=== PATIENT | male | born 1960 | race Caucasian/White ===

== ENCOUNTER 2023-09-18 17:18 | Inpatient (IN) | payer OTHER ==
[~2023-09-18] VITALS: Ht 177.8 cm; Wt 131.8 kg
[2023-09-18] MEDS ORDERED: IBLOOD GLUCOSE TEST STRIP 1 EA TEST VI ONE (17:45)
[2023-09-18] MEDS ORDERED: SODIUM CHLORIDE 0.9% 1,000 ML IV PRN (18:00)
[2023-09-18 18:02] LABS: ALBUMIN 3.5 g/dL (3.4-5.0); ALBUMIN/GLOBULIN RATIO 0.92 (1.1-2.4); ALCOHOL, MEDICAL <3 ng/dL (<3); ALKALINE PHOSPHATASE 145 U/L (46-116); ALT (SGPT) 49 U/L (14-59); ANION GAP 31.5 (7-21); AST (SGOT) 26 U/L (15-37); BILIRUBIN, TOTAL 1.8 ng/dL (0.2-1.0); BUN/CREATININE RATIO 20.56 (6.0-28.6); CALCIUM 9.3 mg/dL (8.5-10.1); CARBON DIOXIDE 13 mmol/L (21-32); CHLORIDE 87 mmol/L (98-107); CREATININE, SERUM 3.55 mg/dL (0.70-1.30); GLOMERULAR FILTRATION RATE,EST 19 mL/min (>60); POTASSIUM 4.5 mmol/L (3.5-5.1); PROTEIN, TOTAL 7.3 g/dL (6.4-8.2); UREA NITROGEN 73 mg/dL (7-18)
[2023-09-18 18:13] LABS: PH, VENOUS 7.245 (7.31-7.41)
[2023-09-18 18:16] LABS: BASOPHILS 0.1 % (0-2); HEMATOCRIT 41.9 % (35.0-50.0); HEMOGLOBIN 14.2 g/dL (12.0-18.0); LYMPHOCYTES 2.4 % (24-44); MCH 33.5 (27-36); MCV 98.6 fl (81-99); MONOCYTES 5.7 % (0-12); NEUTROPHILS 91.8 % (39-80); PLATELET COUNT 384 K/uL (140-440); RBC 4.24 M/ul (4.3-5.7); RDW 13.4 (10.5-15.0)
[2023-09-18 18:20] LABS: LACTIC ACID, BLOOD 2.4 mmol/L (0.4-2.0)
[2023-09-18] MEDS ORDERED: INSULIN REGULAR IN 0.9 % NACL 100 ML IV SCH (19:15)
[2023-09-18] MEDS ORDERED: LACTATED RINGER'S 1,000 ML IV ONE ×2 (20:45→21:00)
[2023-09-18 21:19] LABS: ANION GAP 29.8 (7-21); BUN/CREATININE RATIO 22.5 (6.0-28.6); CALCIUM 8.5 mg/dL (8.5-10.1); CREATININE, SERUM 3.11 mg/dL (0.70-1.30); POTASSIUM 3.8 mmol/L (3.5-5.1)
--- NOTE | 2023-09-18 22:14 | NUR ---
PT ARRIVES TO CCU ROOM 130, ADMITTED FOR DKA, INSULIN DRIP INFUSING AT 8.8 UNITS/HR, WILL TITRATE UP LAST BLOOD SUGAR CAME BACK >900.
--- NOTE | 2023-09-18 22:20 | NUR ---
CALL TO MD TO UPDATE HIM ON PT STATUS, LET HIM KNOW PT IS IN CCU, VERIFY ORDERS FOR BICARB PER ED RN AND IVF. UPDATED ON STATUS, NEW ORDER FOR LR BOLUS GIVEN WELL THE BICARB AND TO RECHECK LABS IN 2 HOURS.
[2023-09-18] MEDS ORDERED: DEXTROSE 5% 1,000 ML IV PRN (22:30)
[2023-09-18] MEDS ORDERED: LACTATED RINGER'S 1,000 ML IV SCH (22:30)
[2023-09-18] MEDS ORDERED: GLUCAGON,HUMAN RECOMBINANT 1 MG/ML VIAL SUB-Q PRN (22:30)
[2023-09-18] MEDS ORDERED: IBLOOD GLUCOSE TEST STRIP 1 EA TEST XX PRN (22:30)
[2023-09-18] MEDS ORDERED: SODIUM BICARBONATE 50 MEQ/50 ML SYR IV ONE (22:30)
[2023-09-18] MEDS ORDERED: DEXTROSE 50% 50 ML SYR IV PRN ×2 (22:30)
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
[2023-09-18 23:25] LABS: PH, VENOUS 7.293 (7.31-7.41)
[2023-09-18 23:30] VITALS: BP 96/82
[2023-09-18 23:39] LABS: ANION GAP 23.4 (7-21); BUN/CREATININE RATIO 23.8 (6.0-28.6); CALCIUM 8.8 mg/dL (8.5-10.1); CREATININE, SERUM 2.73 mg/dL (0.70-1.30); POTASSIUM 3.4 mmol/L (3.5-5.1)
[2023-09-19] VITALS (31 sets, daily range): BP systolic 83–147; BP diastolic 51–87
--- NOTE | 2023-09-19 | NUR ---
RECENT LABS BACK, SHOW BLOOD GLUCOSE 494 BUT BEDSIDE MACHINE AT 0000 READING HIGH, WILL CONFIRM GLUCOSE WITH LAB DRAW.
--- NOTE | 2023-09-19 00:02 | NUR ---
CALL TO DR HINDS TO UPDATE HIM ON MOST RECENT LAB RESULTS- ORDERS RECEIVED. IN TO DO BLOOD SUGAR CHECK, MACHINE READING HIGH, WILL HAVE LAB COME AND DRAW.
[2023-09-19] MEDS ORDERED: POTASSIUM CHLORIDE 10 MEQ/100 ML BAG IV SCH ×2 (00:15→06:30)
[2023-09-19] MEDS ORDERED: SODIUM BICARBONATE 100 MEQ in SODIUM CHLORIDE 0.45% 1,000 ML IV SCH (00:30)
[2023-09-19] MEDS ORDERED: SODIUM BICARBONATE 50 MEQ/50 ML VIAL ONE (00:53)
[2023-09-19 01:28] LABS: PH, VENOUS 7.309 (7.31-7.41)
[2023-09-19] MEDS ORDERED: LACTATED RINGER'S 1,000 ML IV ONE ×2 (01:45→03:45)
--- NOTE | 2023-09-19 01:45 | NUR ---
PT INC LOOSE DARK BROWN STOOL AND MODERATE AMT URINE, PT CLEANED UP, LINEN CHANGE DONE. PT SLIGHTLY UNCOOPERATIVE WITH CARES, HE IS AWAKE DURING THIS ACTIVITY, ANSWERS A FEW QUESTIONS- DENIES PAIN ALTHOUGH HE IS OCCASIONALLLY MOANING, AGAIN STATES THAT HE IS THE HOSP[place]. REPLIES "NO" WHEN ASKED IF HE HAS ANY FAMILY OR FRIENDS WE COULD CALL FOR HIM. AFTER CARE ACTIVITY HE GOES BACK TO SLEEP QUICKLY. HR REMAINS 100'S. CONT TO MONITOR BP'S.
[2023-09-19 01:52] LABS: ANION GAP 23.4 (7-21); BUN/CREATININE RATIO 24.53 (6.0-28.6); CALCIUM 8.6 mg/dL (8.5-10.1); CREATININE, SERUM 2.69 mg/dL (0.70-1.30); POTASSIUM 3.4 mmol/L (3.5-5.1)
--- NOTE | 2023-09-19 02:15 | NUR ---
DR HINDS CALLED AND UPDATED ON BP'S TRENDING DOWN, ORDER GIVEN FOR ANOTHER LR BOLUS, BOLUS STARTED.
--- NOTE | 2023-09-19 02:30 | NUR ---
DR HINDS IN TO SEE PT, NEW ORDERS GIVEN FOR ADD ON LABS.
--- NOTE | 2023-09-19 04:31 | NUR ---
BPS HAVE BEEN IMPROVING SINCE LR BOLUS, MOST RECENT BP 106/62. HR DOWN TO 80'S SINUS RHYTHM WITH OCC PVC'S. PT CONT TO MOSTLY SLEEP WITH OCCASIONAL MOANS AND MOVING HIMSELF IN BED SOME. BED ALARM REMAINS ON ALTHOUGH PT HAS NOT MADE ANY ATTEMPT TO GET HIMSELF OUT OF BED AT THIS POINT.
--- NOTE | 2023-09-19 05:02 | NUR ---
LAB IN TO DRAW
[2023-09-19] MEDS ORDERED: LORazepam 2 MG/ML VIAL IV/IM PRN (05:15)
[2023-09-19 05:22] LABS: HEMOGLOBIN 11.5 g/dL (12.0-18.0)
[2023-09-19 05:49] LABS: ANION GAP 13.1 (7-21); BUN/CREATININE RATIO 27.35 (6.0-28.6); CALCIUM 8.4 mg/dL (8.5-10.1); CREATININE, SERUM 2.12 mg/dL (0.70-1.30); MAGNESIUM 2.1 mg/dL (1.8-2.4); POTASSIUM 3.1 mmol/L (3.5-5.1)
[2023-09-19 05:55] LABS: HEMATOCRIT 31.5 % (35.0-50.0); LYMPHOCYTES 8.6 % (24-44); MCH 34.4 (27-36); MCV 94.6 fl (81-99); MONOCYTES 6.4 % (0-12); PLATELET COUNT 281 K/uL (140-440); RBC 3.33 M/ul (4.3-5.7)
[2023-09-19 05:58] LABS: MCHC 36.4 g/dl (30-36)
[2023-09-19] MEDS ORDERED: IBLOOD GLUCOSE TEST STRIP 1 EA TEST VI SCH ×4 (06:00→16:00)
--- NOTE | 2023-09-19 06:55 | NUR ---
DR HINDS ROUNDING ON PT, UPDATE GIVEN, NEW ORDERS RECEIVED. UPDTED ON CRITICAL LAB VALUE LACTIC ACID 2.2, WILL REPEAT LACTIC IN 3 HOURS, DRAW BLOOD CULTURES AND START ABX.
--- NOTE | 2023-09-19 07:00 | NUR ---
Report received from Carine SUAREZ. Patient resting in bed with eyes closed, even and unlabored respirations noted. insulin gtt confirmed at 5.1. Pt awakens to voice, states at "[facility]", able to verify birthday. Incontinent urine changed, dry attend in place. Pt assisted to use urinal and UA was obtained.
[2023-09-19] MEDS ORDERED: CEFEPIME HCL/D5W 1 GM/100 ML PIGGYBACK IV SCH (08:00)
--- NOTE | 2023-09-19 08:00 | NUR ---
CBG checked, 223, see flowsheet for insulin gtt. Scheduled medications administered and assessment complete. Pt displays altered mental status, intermittenly oriented to place and self, continues to talk about going home, "locking up guns", tangential stories about world travel and taking LSD. Lab in room to draw.
[2023-09-19 08:13] LABS: BILIRUBIN, URINE POSITIVE (negative); BLOOD/HGB, URINE SMALL (Negative); KETONE, URINE SMALL (Negative); LEUK ESTERASE, URINE NEGATIVE (negative); NITRITE, URINE NEGATIVE (negative); PH, URINE 5.5 (5-7)
[2023-09-19 08:19] LABS: EPITHELIAL CELLS, URINE SQUAMOUS 1+ /lpf (0-1+)
[2023-09-19 08:21] LABS: BACTERIA, URINE 2+ /hpf (negative); COLLECTION TYPE, URINE CLEAN CATCH; CRYSTALS, URINE NONE SEEN (0-1+); RED BLOOD CELLS, URINE 0-1 /hpf (0-5)
[2023-09-19 08:24] LABS: REFLEX CULTURE, URINE Yes (No)
[2023-09-19 08:28] LABS: AMPHETAMINES, URINE NEGATIVE (NEGATIVE); BARBITURATES, URINE NEGATIVE (NEGATIVE); BENZODIAZEPINE, URINE NEGATIVE (NEGATIVE); BUPRENORPHINE, URINE NEGATIVE (NEGATIVE); CANNABINOID, URINE NEGATIVE (NEGATIVE); COCAINE, URINE NEGATIVE (NEGATIVE); ECSTASY, URINE NEGATIVE (NEGATIVE); FENTANYL, URINE NEGATIVE (NEGATIVE); METHADONE, URINE NEGATIVE (NEGATIVE); OPIATES, URINE NEGATIVE (NEGATIVE); OXYCODONE, URINE NEGATIVE (NEGATIVE); PHENCYCLIDINE, URINE NEGATIVE (NEGATIVE)
[2023-09-19 08:47] LABS: BUN/CREATININE RATIO 29.28 (6.0-28.6); CALCIUM 8.1 mg/dL (8.5-10.1); CREATININE, SERUM 1.81 mg/dL (0.70-1.30)
[2023-09-19] MEDS ORDERED: PANTOPRAZOLE SODIUM 40 MG/10 ML VIAL IV SCH (09:00)
[2023-09-19] MEDS ORDERED: DAPTOmycin 500 MG/10 ML VIAL IV SCH (09:00)
[2023-09-19] MEDS ORDERED: ENOXAPARIN SODIUM 40 MG/0.4 ML SYR SUB-Q SCH (09:00)
--- NOTE | 2023-09-19 09:00 | NUR ---
CBG checked 203, insulin gtt at 4.2. IV ABX infusing, K rider complete, IVF infusing per order. Patient appears to be gradually more oriented, receptive to education about treatment plan, patient status etc. Continue to reinforce. Patient continues to discuss random topics not relevant to situation. Redirectable.
--- NOTE | 2023-09-19 09:45 | NUR ---
Discussed with Dr Link plan for pt. Insulin drip turned off at this time. RBVO to clarify- SS insulin orders and Accuchecks entered.
[2023-09-19] MEDS ORDERED: INSULIN LISPRO 100 UNIT/ML ML SUB-Q SCH ×3 (10:00→16:00)
--- NOTE | 2023-09-19 10:00 | NUR ---
CBG 199, 3 units SS insulin administered.
[2023-09-19] MEDS ORDERED: THIAMINE HCL 200 MG/2 ML VIAL IV SCH (11:15)
[2023-09-19] MEDS ORDERED: FOLIC ACID 1 MG TAB PO SCH (11:15)
[2023-09-19] MEDS ORDERED: POTASSIUM CHLORIDE 10 MEQ TABCR PO ONE ×2 (11:15→13:30)
--- NOTE | 2023-09-19 11:24 | NUR ---
VERBAL ORDERS FROM DR HINDS RECEIVED TO DC INSULIN DRIP, START Q4 X4 CBG AND SS, THIAMINE, FOLIC ACID AND PO K, LAB DRAWS. RBVO.
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
--- NOTE | 2023-09-19 11:36 | NUR ---
Patient calls again regarding "locking up his house and guns", Sup. Mona in unit and comes to talk to pt.
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
[2023-09-19] MEDS ORDERED: PHARMACY RENAL DOSE ADJUSTMENT 1 DOSE MISC PO SCH (12:00)
--- NOTE | 2023-09-19 12:17 | NUR ---
CBG checked, 235, 5 units SS insulin provided. IV thiamine provided. Pt able to take [address] Link verifies pt able to advance to 60g C diet. Lunch delivered. Pt remains stable condition, RA, increasingly more alert and oriented albeit some moments of disorientation, redirectable.
[2023-09-19 12:43] LABS: ANION GAP 12.9 (7-21); BUN/CREATININE RATIO 28.22 (6.0-28.6); CALCIUM 8.1 mg/dL (8.5-10.1); CREATININE, SERUM 1.63 mg/dL (0.70-1.30); POTASSIUM 2.9 mmol/L (3.5-5.1)
--- NOTE | 2023-09-19 12:51 | EKG ---
[facility] [address] [place], [place] [address] Signed Sinus rhythm Inferior infarct , age undetermined Abnormal ECG No previous ECGs available Confirmed by FELIZ HINDS MD ([id number]) on 09/19/2023 12:52:13 PM Electronically Signed By: FELIZ HINDS 09/19/23 1251 PATIENT NAME: ALIZA AUSTIN Electrocardiogram DATE OF : 64 PHYSICIAN: FELIZ HINDS REPORT #: [id number] REPORT IS CONFIDENTIAL AND NOT TO BE RELEASED WITHOUT AUTHORIZATION
--- NOTE | 2023-09-19 13:10 | NUR ---
REPORT RECEIVED FROM DANIELA RODRIGUEZ. PT DONE WITH LUNCH, ATE APPROX 75% AND NOW USING THE URINAL. PT STATES WE ARE IN [place] AND HIS BABY BROTHER IS TO A DUDE. PT IS AWARE HE IS IN A HOSPITAL ATT THOUGH.
[2023-09-19] MEDS ORDERED: POTASSIUM CHLORIDE 40 MEQ,LIDOCAINE HCL 1% 40 MG in DEXTROSE 5% 500 ML IV ONE (13:30)
--- NOTE | 2023-09-19 13:55 | NUR ---
PT CALLED TO HAVE TEMP IN ROOM TURNED DOWN HE WAS HOT. K RIDER INFUSING.
--- NOTE | 2023-09-19 14:43 | NUR ---
PT CALLED TO ASK IF HE STILL NEEDED TO BE HOOKED UP TO ALL THE THINGS HE "WANTS TO RUN OFF". EXPLAINED THAT HE WILL BE HERE IN THE HOSPITAL A LITTLE LONGER AND THAT HE IS GETTING POTASSIUM THROUGH HIS IV.
--- NOTE | 2023-09-19 15:05 | NUR ---
STARTED AB IN LEFT UPPER ARM IV. FLUSHED WELL. PT STATES HE LIVES IN [facility], SO NOT ORIENTED YET. BUT DID KNOW WHO IS THE PRESIDENT.
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
[2023-09-19 18:32] LABS: ANION GAP 15.8 (7-21); BUN/CREATININE RATIO 24.84 (6.0-28.6); CALCIUM 7.8 mg/dL (8.5-10.1); CREATININE, SERUM 1.57 mg/dL (0.70-1.30); POTASSIUM 3.8 mmol/L (3.5-5.1)
[2023-09-19] MEDS ORDERED: INSULIN GLARGINE-YFGN 100 UNIT/ML ML SUB-Q SCH (21:00)
--- NOTE | 2023-09-19 23:28 | NUR ---
Pt has called multiple times, stating "I am not watching this crap", but when offered to change channel or turn off TV he states "I want to keep it, I haven't watched [employer] in a long time". It appears he has more psychsocial needs than medical need. At one point he demanded this RN dump his urinal as I was hanging a medication. I asked him to place the urinal on the table and I would dump it as soon as I was finished, which severely aggitated patient who then said "I'll come through you if you don't take this". Brayan ADRIÁN was near and heard, he came in the room and emptied the urinal and spoke with pt briefly about starting over. When leaving the room, I asked if pt needed anything further and he stated "no thank you" kindly. Pt POC glucose was 421, notified, continue with Long and short acting insulin. See eMAR
[2023-09-20] VITALS (11 sets, daily range): BP systolic 114–155; BP diastolic 57–89
[2023-09-20 05:46] LABS: ALBUMIN 2.5 g/dL (3.4-5.0); ALBUMIN/GLOBULIN RATIO 0.89 (1.1-2.4); ANION GAP 13.2 (7-21); BUN/CREATININE RATIO 21.18 (6.0-28.6); CALCIUM 7.8 mg/dL (8.5-10.1); CREATININE, SERUM 1.18 mg/dL (0.70-1.30); MAGNESIUM 1.8 mg/dL (1.8-2.4); POTASSIUM 3.2 mmol/L (3.5-5.1); PROTEIN, TOTAL 5.3 g/dL (6.4-8.2)
[2023-09-20 06:19] LABS: BASOPHILS 1.1 % (0-2); EOSINOPHILS 0.5 % (0-6); HEMATOCRIT 29.4 % (35.0-50.0); HEMOGLOBIN 10.7 g/dL (12.0-18.0); LYMPHOCYTES 16.2 % (24-44); MCV 96.3 fl (81-99); MONOCYTES 8.6 % (0-12); NEUTROPHILS 73.6 % (39-80); PLATELET COUNT 168 K/uL (140-440); RBC 3.05 M/ul (4.3-5.7); RDW 12.7 (10.5-15.0)
[2023-09-20 06:21] LABS: MCHC 36.4 g/dl (30-36)
--- NOTE | 2023-09-20 07:49 | NUR ---
REPORT FROM STREETS AND BUILDINGS DECORATOR MCAYLA, PT RESTING ON LEFT SIDE, RESP RATE REG, EYES CLOSED, CALL LIGHT IN REACH.
[2023-09-20] MEDS ORDERED: POTASSIUM CHLORIDE 10 MEQ TABCR PO ONE (08:00)
--- NOTE | 2023-09-20 09:11 | NUR ---
in room with dr, and pt advocate. pt alert and oriented. answers questions appropriate.
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
--- NOTE | 2023-09-20 09:37 | NUR ---
pt has called for rn 3-4 times consistantly after each visit, asking same questions, fixated on dental insurance and fretting about his house and who will pay bills, educated pt that dc retail planner, informatics educator and this rn are working on plan of care and the pt advocated was just in with and this rn and is working on helping, pt states he understands, pt/ot in to work with pt.
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
--- NOTE | 2023-09-20 10:02 | NUR ---
DISCUSSED PT PLAN OF CARE AND EXPERINCES WITH IMER RAMOS DENTAL CERAMIST ASSISTANT.
--- NOTE | 2023-09-20 10:12 | NUR ---
PT CALLED RN IN TO ASK NURSE TO CALL [facility] - RN DECLINED AND ADVISED HIM TO CALL HIS FAMILY - HE SAID NO HE HAS A BROTHER AND A SISTER AND THEY ARE BOTH CRAZY! INSISTS THAT WE CALL THE TRUST AT [facility] - RN EDUCATED THAT i CAN NOT CALL A BANK BUT i CAN CALL A NEXT OF KIN, PT BROTHER SAMEER RILEY AT DESK WITH FORMULA CLERK SARAH.
--- NOTE | 2023-09-20 10:39 | NUR ---
call to dr almanza to let him know pt is becoming anxious and hyperfocused on rn needing to call his trust - upset that I stated I will not. pt starts to discuss his childhood, and siblings and his distrust for his brother and insists again that I call the bank and figure out this health care situation.
--- NOTE | 2023-09-20 11:27 | NUR ---
yana here to talk to pt about diabetic education and food. pt cooks his own meals, and shops for self. pt up in chair - starts to talk about dogs, and carlene hong redirects convo to diabetic food teaching. diabetic tracking flow sheet provided by this rn to pt. 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 reports he needs to find a or nurse to take care of him.
--- NOTE | 2023-09-20 11:50 | NUR ---
this rn did pt teaching for pre lunch blood sugar check, 309 glucose - and 7 units of insulin. rn educated pt to write down the number at lunch time on the flow sheet provided, and educated that the dr order is for 7 units of insulin when the number is that high, yana present and helped re enforce the teaching. pt very scattered in thoughts and tries to add 309 and 7 together - explained that 309 is the blood sugar level and 7 is the units of medication. they are diffrent and no adding is needed. rn demonstrated the shot in abd. with yana present, etoh wipe, pinch abd fat, push needle, push medication dose and pull needle strait out - done. will continue to re enforce - up in with call light for meal.
[2023-09-20] MEDS ORDERED: INSULIN LISPRO 100 UNIT/ML ML SUB-Q SCH (12:00)
[2023-09-20] MEDS ORDERED: IBLOOD GLUCOSE TEST STRIP 1 EA TEST VI SCH (12:00)
--- NOTE | 2023-09-20 13:03 | NUR ---
Pt reclined in chair, eyes closed, resp rate reg. call light in reach.
--- NOTE | 2023-09-20 13:21 | NUR ---
REPORT TO GISSELLE SUAREZ ON MED SURG. PT CONTINUES TO SLEEP IN CHAIR - PLAN TO TRSF. MED SURG ROOM 112
--- NOTE | 2023-09-20 13:26 | NUR ---
CALL TO DR UP, CONFIRM TRSF TO MED SURG. DC ABX.
--- NOTE | 2023-09-20 13:31 | NUR ---
VISITED DURING SPIRITUAL CARE ROUNDS. PT APPEARED TO BE ASLEEP. DID NOT DISTURB. PROVIDED PRAYER.
--- NOTE | 2023-09-20 14:05 | NUR ---
pt trsf to 112 with conrado concepcion. all belongings with pt.
--- NOTE | 2023-09-20 14:07 | NUR ---
ATTEMPTED TO VISIT DURING SPIRITUAL CARE ROUNDS. PT RECEIVING NURSING CARE. DID NOT DISTURB. PROVIDED PRAYER.
--- NOTE | 2023-09-20 14:25 | NUR ---
bROUGHT PT OVER FROM CCU IN CHAIR. REPORT FROM DANIELA NÚÑEZ. PT ALERT AND COOPERATIVE. USED THE URINAL, GIVEN CALL LIGHT AND TV REMOTE. REFILLED WATER CUP. PT DENIES FURTHER NEEDS.
--- NOTE | 2023-09-20 15:18 | NUR ---
PT CONTINUES IN CHAIR. DRAWING ON PIECE OF PAPER," HIS DRUNK APPLE". TALKING ABOUT HIS TIME HITCHHIKING THROUGH [place] AND [place]. VS STABLE.
--- NOTE | 2023-09-20 16:30 | NUR ---
Pt discussed with Dr. Swenson and I am unable to find information on this pt. There is a phone number listed for his brother Acosta Chew [phone], but pt denied permission to call the brother.
--- NOTE | 2023-09-20 16:56 | NUR ---
PATIENT IS FINISHED WITH SHOWER. PATIENT DRIED SELF OFF, HELPED PATIENT WITH SOCKS. PATIENT AMBULATED FROM BATHROOM TO CHAIR WITH SBA AND STEADY ON HIS BEED. CALL LIGHT WITHIN REACH.
--- NOTE | 2023-09-20 17:38 | NUR ---
ASSISTED PT TO ADMINISTER HIS OWN INSULIN IN HIS ABDOMEN. PT DID WELL AND WO ERROR. ASKED PT ABOUT HIS PLANS AFTER DISCHARGE AND HE STATED HE WOULD LIKE TO GET AHOLD OF [place] HIS SISTER OR SAMEER HIS BROTHER. STATES THAT HE IS FINE IF WE CALL ONE OF THEM. DOES NOT KNOW THEIR NUMBERS OR HOW TO GET THEM. STATES HE HAS AN AUNT IN [place] NAMED JIHAN MARISCAL. PT ATE MOST OF DINNER.
--- NOTE | 2023-09-20 19:20 | NUR ---
BEDSIDE REPORT RECEIVED FROM GISSELLE RN, PT AWAKE AND ALERT, PLEASANT, DENIES NEEDS AT THIS TIME.
--- NOTE | 2023-09-20 21:05 | NUR ---
PT LAYING IN BED WITH EYES CLOSED, AWAKEN, VS COMPLETED, PT OPENS EYES, ASSESSMENT COMPLETED, PT STATES HE HAS TO VOID, PLANNING TO USE URINAL, NURSE STEPPED OUT, WHEN RN RETURNED URINAL EMPTY, WHEN QUESTIONED PT STATES HE VOIDED IN URINAL AND THEN GOT UP TO EMPTY IT, DISCUSSED NEED TO MEASURE URINE OUTPUT, PT APPEARS AGITATED STATING "SO WE ARE PLAYING THIS GAME", DECLINES TELLING NURSE HOW FULL URINAL WAS.
--- NOTE | 2023-09-20 21:26 | NUR ---
PT ASSISTED WITH PERFORMING ACCUCHECK, BLOOD SUGAR 295, PT COMPLETES FINGER STICK, COLLECTION OF BLOOD DROP BY RN, PT ADMINISTERED LONG ACTING AND SS INSULIN WITH FAIR TECHNIQUE IN HIS ABDOMEN. PT DENIES NEEDS AT THIS TIME.
--- NOTE | 2023-09-20 22:50 | NUR ---
HANDKERCHIEF PRESSER TO ROOM TO ASSIST PT WITH PUTTING UP SIDE RAIL, PT WITHOUT OTHER REQUESTS AT THIS TIME.
[2023-09-21] VITALS (8 sets, daily range): BP systolic 125–153; BP diastolic 72–93
--- NOTE | 2023-09-21 00:30 | NUR ---
PT RESTING, CALLING OUT AT TIMES, HR 88/MIN, CPOX AT 94%, CONTINUES ON 1L/NC.
--- NOTE | 2023-09-21 01:55 | NUR ---
PT APPEARS TO SLEEP, RESP EVEN AND REG, LAYING ON LEFT SIDE, WITHOUT DISTRESS.
--- NOTE | 2023-09-21 04:05 | NUR ---
PT APPEARS TO SLEEP, RESP EVEN AND REG, URINAL EMPTIED FOR YELLOW URINE.
--- NOTE | 2023-09-21 04:55 | NUR ---
PT AWAKE, RECENTLY UP TO BR TO VOID, USING FWW BUT NOT CALLING FOR STAND BY ASSIST, BACK TO BED, VS DONE AND STABLE, PT DENIES COMPLAINTS, PT ALERT, PLEASANT, DENIES NEEDS AT THIS TIME.
[2023-09-21 05:37] LABS: ANION GAP 9.5 (7-21); BUN/CREATININE RATIO 13.46 (6.0-28.6); CALCIUM 7.9 mg/dL (8.5-10.1); CREATININE, SERUM 1.04 mg/dL (0.70-1.30); POTASSIUM 3.5 mmol/L (3.5-5.1)
[2023-09-21 05:40] LABS: BASOPHILS 0.8 % (0-2); EOSINOPHILS 2.3 % (0-6); HEMATOCRIT 29.1 % (35.0-50.0); HEMOGLOBIN 10.5 g/dL (12.0-18.0); LYMPHOCYTES 28.9 % (24-44); MCH 34.7 (27-36); MCV 96.5 fl (81-99); PLATELET COUNT 157 K/uL (140-440); RBC 3.01 M/ul (4.3-5.7); RDW 12.8 (10.5-15.0)
--- NOTE | 2023-09-21 06:00 | NUR ---
PT RESTING WITHOUT COMPLAINTS AT THIS TIME.
--- NOTE | 2023-09-21 07:34 | NUR ---
Patient resting in bed, eyes closed, respirations even and non labored. Patient has no notable distress. Personal supplies and call light within reach.
[2023-09-21] MEDS ORDERED: THIAMINE HCL 100 MG TAB PO SCH (08:00)
--- NOTE | 2023-09-21 08:15 | NUR ---
Patient went through the proper steps on taking blood sugar. Patient understoof the proper steps. Board has been updated and call light has been placed within reach
--- NOTE | 2023-09-21 08:23 | NUR ---
MED REC COMPLETE
[2023-09-21] MEDS ORDERED: PANTOPRAZOLE SODIUM 40 MG TABEC PO SCH (09:00)
--- NOTE | 2023-09-21 09:00 | NUR ---
Patient awake, alert to self and place. Patient reports he "does not people well". Patient reports he has a difficult time talking to people. Patient does not have any distress at this time. Personal supplies and call light within reach.
--- NOTE | 2023-09-21 10:27 | NUR ---
VISITED DURING SPIRITUAL CARE ROUNDS. PT EXHIBITED LIMITED HAN OR RELATIONAL RESOURCES, LIMITED INTEREST IN DISCUSSION. I LISTENED EMPATHETICALLY PT TALKED OF FAMILY, CONCERNS REGARDING DISCHARGE PLAN, PERSONAL HAN JOURNEY. PROVIDED SILENT PRAYER.
--- NOTE | 2023-09-21 10:30 | NUR ---
PT DECLINES FURTHER PASTORAL CARE VISITS.
--- NOTE | 2023-09-21 11:18 | NUR ---
WENT TO THE PATIENT'S ROOM TO DISCUSS THE DISCHARGE PLAN AND THE PATIENT IS SLEEPING. MOLD CAPPER WILL RETURN LATER TO TALK TO THE PATIENT.
--- NOTE | 2023-09-21 12:35 | NUR ---
Patient sitting up eating, alert to self and place. Patient able to self administer his lunch time scheduled insulin. Patient has no current needs, personal supplies and call light within reach.
--- NOTE | 2023-09-21 13:54 | NUR ---
UR CLINICAL REVIEW COMPLETED 09/20/23: [facility] [place] SELF PAY OBS 09/18/23 @ 4205, CHANGE OF STATUS TO INPATIENT 09/20/23 @ 1025 ORDERS MATCH NO PA REQUIRED. WILL ATTEMPT TO QUALIFY PATIENT FOR [place] [employer]ICA[employer] DISCHARGE PENDING FURTHER EVALUATION 09/23/23
--- NOTE | 2023-09-21 15:39 | NUR ---
MECHANICAL REPAIR WORKER WAS ABLE TO GET THE PATIENT SIGNED UP FOR [facility] AND PATIENT'S APPT.WILL BE September AT 1PM WITH MISSY JJ. PATIENT IS TRYING TO FIND HIS PHONE WHICH IS LOST AT THIS TIME. PATIENT DOES NOT WANT TO RETURN HOME. MECHANICAL REPAIR WORKER ASK PATIENT TO CONSIDER SNF REHAB. AND DM TEACHING.
--- NOTE | 2023-09-21 15:47 | NUR ---
FAXED PATIENT MEDICAL RECORDS OVER TO [facility] FOR REVIEW. PATIENT WAS REMINDED TO ARRIVE 20 MINTUES.
--- NOTE | 2023-09-21 17:42 | NUR ---
Patient sitting up in bed eating dinner, no acute distress. Patient reports he is doing well at this time. Call light within reach of pt.
--- NOTE | 2023-09-21 19:42 | NUR ---
REPORT RECEIVED FROM DAY RN. PATIENT WAS STANDING IN HIS BATHROOM SHAVING. RN ASKED PATIENT IF HE NEEDED ASSISTANCE. HE STATED, " NO I LIKE TO BE SHAVED." RN MONITORING WITH DISTANCE WHILE PATIENT WAS SHAVING. PATIENT BACK TO BED. UP AND WALKING WITH 1 PA STAND BY ASSIST, TOLLERATED WELL. NO FURTHER NEEDS AT THIS TIME. CALL LIGHT WITHIN REACH.
--- NOTE | 2023-09-21 21:13 | NUR ---
INSIDE CONTRACTOR SALES ENTERED ROOM AND OBTAINED VITALS AND INPUT. NO OUT PUT NOTED. INSIDE CONTRACTOR SALES REFILLED PT ICE WATER REQUESTED. PT STATES NO FURTHER NEEDS AT THIS TIME. CALL LIGHT PLACED WITHIN REACH.
--- NOTE | 2023-09-21 21:32 | NUR ---
PATIENT RESTING IN BED. HS MEDICATION ADMINISTERED. NO S/SX OF HYPOGLYCEMIA OR HYPERGLYCEMIA. PATIENT ABLE TO DEMONSTRATE SELF ADMINSTRATION OF HS INSULIN. RN PRESENT DURING TEACHING AND ADMINSTRATION. SECOND RN CHECK TO VERIFY DOSE. PATIENT WITH NO FURTHER NEEDS AT THIS TIME. CALL LIGHT WITHIN REACH.
--- NOTE | 2023-09-21 23:30 | NUR ---
PATIENT IS RESTING IN BED. WATCHING TV. DENIES ANY NEEDS AT THIS TIME. CALL LIGHT WITHIN REACH.
[2023-09-22] VITALS (10 sets, daily range): BP systolic 133–161; BP diastolic 72–97
--- NOTE | 2023-09-22 00:35 | NUR ---
PATIENT RESTING IN BED LAYING ON HIS LEFT SIDE. RESPRIATIONS EVEN AND UNLABORED. CALL LIGHT WITHIN REACH.
--- NOTE | 2023-09-22 05:41 | NUR ---
PATIENT RESTING IN BED. URINAL EMPTIED. USED MOUTHWASH RINSE. VSS. NO C/O PAIN OR DISCOMFORT. DENIES HEADACHE, DIZZYNESS, AND SHAKINESS. NO FURTHER NEEDS AT THIS TIME. CALL LIGHT WITHIN REACH.
[2023-09-22 08:28] LABS: ANION GAP 13.4 (7-21); BUN/CREATININE RATIO 11.95 (6.0-28.6); CALCIUM 7.6 mg/dL (8.5-10.1); CREATININE, SERUM 0.92 mg/dL (0.70-1.30); POTASSIUM 3.4 mmol/L (3.5-5.1)
[2023-09-22 08:52] LABS: BASOPHILS 0.5 % (0-2); EOSINOPHILS 2.3 % (0-6); HEMATOCRIT 30.8 % (35.0-50.0); LYMPHOCYTES 25.2 % (24-44); MCH 33.8 (27-36); MCHC 35.8 g/dl (30-36); MCV 94.4 fl (81-99); MONOCYTES 9.9 % (0-12); NEUTROPHILS 62.1 % (39-80); PLATELET COUNT 148 K/uL (140-440); RBC 3.26 M/ul (4.3-5.7); RDW 12.5 (10.5-15.0)
--- NOTE | 2023-09-22 09:40 | NUR ---
Spoke with pt and he is in agreement for placement to a SNF. Pt [facility] and go to [place]. Chart faxed to [facility] requesting placement for PT/OT and diabetic education. Pt will need 1 more night IP stay for placement.
--- NOTE | 2023-09-22 09:46 | NUR ---
PT DECLINED SPIRITUAL CARE SERVICES. PROVIDED PRAYER.
--- NOTE | 2023-09-22 10:13 | NUR ---
PT EDUCATED ON IMPORTANCE OF USING HIS URINAL
[2023-09-22] MEDS ORDERED: POTASSIUM CHLORIDE 10 MEQ TABCR PO ONE (11:00)
--- NOTE | 2023-09-22 13:00 | NUR ---
Patient sitting up in chair watching tv, no distress. Patient denies needs at this time.
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
--- NOTE | 2023-09-22 19:36 | NUR ---
REPORT RECEIVED FROM DAY RN. PATIENT IS RESTING IN BED. DENIES ANY NEEDS AT THIS TIME. REQUESTED THE PHONE TO "CALL AND PAY THE POWER BILL." RN GRABBED PHONE OFF THE SIDE TABLE FOR PATIENT. CALL LIGHT WITHIN REACH.
--- NOTE | 2023-09-22 21:39 | NUR ---
PATIENT RESTING IN BED. BS CHECKED. PATIENT EDUCATED ON HOW TO TAKE BLOOD SUGAR. PATIENT DEMONSTRATED INJECTION OF HS INSULIN. NO DIFFICULTIES NOTED.VSS, LUNGS CTA. URINAL EMPTIED. BOWEL TONES ACTIVE X 4 QUADRANTS. PATIENT DISCUSSING IS NEW DIAGNOSIS OF DIABETES WITH THIS NURSE. EXPRESSED FEELING UNSURE OF BEING ABLE TO " DEAL" WITH DIABETES. PATIENT EXTRESSED TO THIS RN THAT HIS BROTHER, " COULD CARE LESS I HAVE DIABETES." RN ENCOURAGED PATIENT TO KEEP LEARNING ABOUT THE DISEASE AND REASURED PATIENT THAT HE WILL BE ABLE TO MANAGE DISEASE ONCE HE FUILLY UNDERSTANDS HOW TO CARE FOR IT. CALL LIGHT WITHIN REACH. NO FURTHER NEEDS AT THIS TIME.
[2023-09-23] VITALS (7 sets, daily range): BP systolic 133–160; BP diastolic 66–94
--- NOTE | 2023-09-23 00:04 | NUR ---
PATIENT IS RESTING IN BED LAYING ON HIS LEFT SIDE WITH EYES CLOSED. RESPIRATIONS EVEN AND UNLABORED. CALL LIGHT WITHIN REACH.
--- NOTE | 2023-09-23 02:00 | NUR ---
PATIENT RESTING IN BED WITH EYES CLOSED. RESPIRATIONS EVEN AND UNLABORED. CALL LIGHT WITHIN REACH.
--- NOTE | 2023-09-23 05:37 | NUR ---
PATIENT RESTING IN BED AWAKE. LAB IN ROOM DRAWING BLOOD. PATIENT UP TO BATHROOM WITH 1PA ASSIST TO VOID IN TOILET. PATIENT STEADY ON FEET, TOLLERATED WELL. REQUESTED FRESH ICE WATER. ICE WATER GIVEN. VSS. NO S/SX OF HYPO/HYPERGLYCEMIA. PATIENT DENIES ANY PAIN OR DISCOMFORT THIS AM. CALL LIGHT WITHIN REACH.
[2023-09-23 05:48] LABS: BASOPHILS 0.4 % (0-2); EOSINOPHILS 3.2 % (0-6); HEMATOCRIT 30.1 % (35.0-50.0); LYMPHOCYTES 23.9 % (24-44); MCHC 36.3 g/dl (30-36); MCV 96.3 fl (81-99); MONOCYTES 10.1 % (0-12); NEUTROPHILS 62.4 % (39-80); PLATELET COUNT 171 K/uL (140-440); RBC 3.13 M/ul (4.3-5.7); RDW 12.5 (10.5-15.0)
[2023-09-23 05:58] LABS: ALBUMIN 2.6 g/dL (3.4-5.0); ALBUMIN/GLOBULIN RATIO 0.81 (1.1-2.4); ANION GAP 13.9 (7-21); BILIRUBIN, TOTAL 0.9 ng/dL (0.2-1.0); BUN/CREATININE RATIO 13.97 (6.0-28.6); CALCIUM 8.1 mg/dL (8.5-10.1); CREATININE, SERUM 0.93 mg/dL (0.70-1.30); POTASSIUM 3.9 mmol/L (3.5-5.1); PROTEIN, TOTAL 5.8 g/dL (6.4-8.2)
--- NOTE | 2023-09-23 08:36 | NUR ---
CLINICAL LAB CLERK ENTERED PT ROOM TO RESPIND TO A CALL LIGHT. PT WANTED CLINICAL LAB CLERK TO SWITCH OUT THE WHEELS ON HIS TRAY TABLE BECAUSE THEY KEPT GETTING STUCK. CLINICAL LAB CLERK TOLD PT THAT SHE COULD PUT A WORK TICKET IN BUT THAT SHE WAS NOT QUALIFIED TO SWITCH THE WHEELS OUT. PT SAID "THAT'S RIDICULOUS". CLINICAL LAB CLERK TOLD PT SHE WOULD TRY AND FIND HIM A NEW TRAY TABLE. CALL LIGHT IS RENEE TUCKER RN IN THE ROOM
--- NOTE | 2023-09-23 10:52 | NUR ---
SPOKE TO PATIENT'S BROTHER. THE BROTHER STATED THAT HE PLANS TO VISIT IN THE NEXT COUPLE DAYS. THE BROTHER PLANS TO HELP PAY FOR BILLS.
--- NOTE | 2023-09-23 12:04 | NUR ---
SPOKE TO ALYCE AT [place]. THE REFERRALIS BEING LOOKED AT BY BED CONTROL. ALYCE STATES IT TAKES A LITTLE LONGER TO GET AN AUTH. FOR A MEDICAID PATIENT. ADAPTIVE PHYSICAL EDUCATION SPECIALIST WLL CHECK BACK OFTEN FOR STATUS.
--- NOTE | 2023-09-23 14:11 | NUR ---
SBA TO BSC FOR ELIMINATION NEEDS, VOIDING WELL. PT SBA BACK TO BED. CALL LIGHT WITHIN REACH, DID TALK WITH HER ABOUT AMBULATING THE HALLWAYS FOR STRENGTH, SHE STATES SHE IS HAVING A LOT GOING ON THIS AFTERNOON, CENTRAL LINE REMOVAL, SHOWER AND FEELS SHE IS GETTING UP AND DOWN A LOT TO BSC. REFUSED TO WALK WITH ME AT THIS TIME. ALL PT CARE NEEDS MET AT THIS TIME.
--- NOTE | 2023-09-23 14:54 | NUR ---
Patient resting in bed, eyes closed, respirations even and non labored. Call light within reach of pt.
--- NOTE | 2023-09-23 18:52 | NUR ---
Patient in bed laying on side, eyes closed, respirations even and non labored. Patient has no notable distress. Personal supplies and call light within reach.
--- NOTE | 2023-09-23 19:22 | NUR ---
REPORT RECEIVED FROM DAY RN. PATIENT RESTING IN BED WATCHING TV. DENIES ANY NEEDS AT THIS TIME. CALL LIGHT WITHIN REACH.
--- NOTE | 2023-09-23 20:39 | NUR ---
CALL LIGHT ANSWERED PT ICE WATER REFILLED. RACING MANAGER OBTAINED VITALS AND DOCUMENTED I AND O. PT STATES NO FURTHER NEEDS AT THIS TIME. CALL LIGHT WITHIN REACH.
--- NOTE | 2023-09-23 20:50 | NUR ---
PT OFF BSC AND BACK IN BED. TANNING CONSULTANT OBTAINED VITALS AND DOCUMENTED I AND O. BSC EMPTIED. TANNING CONSULTANT GOT PT A PUDDING AND CRACKERS REQUESTED BY PT. PT STATES NO FURTHER NEEDS AT THIS TIME. CALL LIGHT PLACED WITHIN REACH.
--- NOTE | 2023-09-23 21:30 | NUR ---
PATIENT RESTING IN BED WAITCHING TV. BS CHECKED. PATIENT SELF ADMINSTRED INSULING. NO NOTED ISSUES OR CONCERNS. DENIES ANY PAIN OR DISCOMFORT. NO NOTED S/SX OF HYPER/HYPOGLYCEMIA. LUNGS CTA, BOWEL TONES ACTIVE X 4 QUADRANTS. NO FURTHER NEEDS AT THIS TIME. CALL LIGHT WITHIN REACH.
--- NOTE | 2023-09-23 23:53 | NUR ---
PATIENT IS RESTING IN BED WITH EYES CLOSED. RESPIRATIONS EVEN AND UNLABORED. CALL LIGHT WITHIN REACH.
[2023-09-24] VITALS (7 sets, daily range): BP systolic 129–165; BP diastolic 82–89
--- NOTE | 2023-09-24 01:58 | NUR ---
PATIENT RESTING IN BED WITH EYES CLOSED. RESPIRATIONS EVEN AND UNLABORED. CALL LIGHT WITHIN REACH.
--- NOTE | 2023-09-24 04:00 | NUR ---
PATIENT RESTING IN BED WITH EYES CLOSED. RESPIRATIONS EVEN AND UNLABORED. CALL LIGHT WITHIN REACH.
[2023-09-24 05:44] LABS: ALBUMIN 2.4 g/dL (3.4-5.0); ALBUMIN/GLOBULIN RATIO 0.77 (1.1-2.4); ANION GAP 13.6 (7-21); BUN/CREATININE RATIO 13.79 (6.0-28.6); CALCIUM 7.9 mg/dL (8.5-10.1); CREATININE, SERUM 0.87 mg/dL (0.70-1.30); POTASSIUM 3.6 mmol/L (3.5-5.1); PROTEIN, TOTAL 5.5 g/dL (6.4-8.2)
[2023-09-24 05:45] LABS: BASOPHILS 0.5 % (0-2); EOSINOPHILS 3.3 % (0-6); HEMATOCRIT 27.6 % (35.0-50.0); HEMOGLOBIN 10.1 g/dL (12.0-18.0); LYMPHOCYTES 23.4 % (24-44); MCH 35.3 (27-36); MCHC 36.6 g/dl (30-36); MCV 96.5 fl (81-99); MONOCYTES 11.3 % (0-12); NEUTROPHILS 61.5 % (39-80); PLATELET COUNT 185 K/uL (140-440); RBC 2.86 M/ul (4.3-5.7); RDW 12.8 (10.5-15.0)
--- NOTE | 2023-09-24 05:50 | NUR ---
PATIENT UP TO THE BATHROOM. AMBULATING WELL WITH 1 PA ASSIST. VSS. DENIES ANY PAIN OR DISCOMFORT AT THIS TIME. CALL LIGHT WITHIN REACH.
--- NOTE | 2023-09-24 07:45 | NUR ---
RECIEVED BEDSIDE REPORT FROM DANIELA BURKS. PT IS SLEEPING AT THIS TIME, BREATHING EVEN AND UNLABORED.
[2023-09-24] MEDS ORDERED: INSULIN GLARGINE-YFGN 100 UNIT/ML ML SUB-Q SCH (09:00)
--- NOTE | 2023-09-24 09:50 | NUR ---
CALLED MEGHAAN GALEANO AND A MESSAGE WAS LEFT TO PLEASE GIVE [employer] OFFICER AN UPDATE ON THE INS.AUTH. CASE MANAGEMENT IS HOPING FOR APPROVAL TODAY.
--- NOTE | 2023-09-24 10:10 | NUR ---
PT SITTING UP IN BED, ATE 100% OF BREAKFAST. DR ODOM WAS IN ROUNDING, DISCUSSED PLAN OF CARE TO DISCHARGE TO SNF FOR FURTHER CARE. PT IS IN AGREEMENT. WAITING FOR PLACEMENT. PT EDUCATION PROVIDED ON IMPORTANCE OF EATING, EVEN SMALL AMOUNTS, WHEN TAKING INSULIN. PT VERBALIZED UNDERSTANDING, BUT WILL NEED CONTINUED REINFORCEMENT AND EDUCATION.
--- NOTE | 2023-09-24 10:35 | NUR ---
MED REC COMPLETE. HAS NEVER FILLED W/ PHARMACY ON FILE.
--- NOTE | 2023-09-24 11:13 | NUR ---
CONNECTED WITH FAMILY IN [place]. LISTENED EMPATHETICALLY BROTHER TALKED OF STRAIN IN RELATIONSHIP WITH PT. BROTHER EXPRESSED GRATITUDE THAT PT HAD REACHED OUT, EXPRESSED HOPE. PROVIDED SUPPORTIVE PRESENCE, PRAYER.
--- NOTE | 2023-09-24 11:41 | NUR ---
SPOKE TO PATIENT ABOUT THE DISCHARGE PLAN. MARCUS SAYS THERE WILL NOT BE BEDS UNTIL WEDNESDAY/WEDNESDAY. PATIENT REFUSES TO GO TO SNFS IN [place] OR [place]. PATIENTS BROTHER IS HERE AND IS GOING TO HELP BY CATCHING UP ON THE PATIENTS BILLS AND HELPING FIND THE PATIENT'S PHONE.
--- NOTE | 2023-09-24 12:53 | NUR ---
JAMEEL, CASE MANAGEMENT WOULD LIKE TO TALK TO PT'S BROTHER WHEN HE RETURNS THIS AFTERNOON. ADVISED NURSING OR PT WOULD CALL WHEN WE SEE HIM. PT IS UP ON COUCH. HE REQUESTED A NEW GOWN, WHICH WAS GIVEN. HE IS OPEN TO A SHOWER THIS AFTERNOON.
--- NOTE | 2023-09-24 15:17 | NUR ---
SPOKE TO PATIENT AND BROTHER. PATIENT NEEDS EDUCATION GIVING INSULIN AND WEIGHT AND DIET CONTROL. PATIENT WANTS SNF IN [place] ONLY. PATIENT'S BROTHER WILL MANAGE THE PATIENT'S MONEY AND PAY THE BILLS THAT ARE DUE. [place] HAS A TRUST FUND THAT PAYS FOR RENT,UTILITIES,FOOD.THE BROTHER IS WILLING TO HELP NEEDED AND HAS BEEN AT THE HOSPITAL VISITING TODAY. PATIENT'S BROTHER HAS BEEN AT THE HOSPITAL ON AND OFF TODAY AND IS GREAT SUPPORT. CRISTOBAL PHONE IS [phone]
--- NOTE | 2023-09-24 17:55 | NUR ---
PT WAS VERY TIRED THIS MORNING AND DID NOT WANT TO EAT BREAKFAST. EDUCATION PROVIDED ON THE IMPORTANCE OF EATING EVEN SMALL AMOUNTS A DIABETIC ON INSULIN. HE DID AGREE TO EAT BREAKFAST AND ATE 100%. PT'S BROTHER CAME TO VISIT. MET WITH ELIGIBILITY AND OCCUPANCY INTERVIEWER TO DETERMINE PLAN OF CARE. PT IS STILL WAITING FOR A BED AT A SNF. ELIGIBILITY AND OCCUPANCY INTERVIEWER WAS ABLE TO SECURE INSURANCE FOR PATIENT. HIS BROTHER WENT TO HIS APARTMENT AND WAS ABLE TO LOCATE HIS PHONE AND BILLS. PT WAS ABLE TO DEMOSTRATE GIVING HIMSELF HIS EVEING INSULIN. SLIDING SCALE WAS CHANGED TO "SEVERE" AND A DOSE OF AM LONG ACTING INSULIN. BLOOD SUGARS ARE SLOWLY COMING DOWN. DISCHARGE PLAN IS WEDNESDAY OR WEDNESDAY, BASED ON BED AVAILABILITY. FAMILY DOES NOT THINK HE IS SAFE TO DISCHARGE HOME AT THIS POINT.
--- NOTE | 2023-09-24 19:19 | NUR ---
GOT REPORT FROM DAY SHIFT NURSE.
--- NOTE | 2023-09-24 19:55 | NUR ---
PATIENT USED HIS CALL LIGHT TO CALL NURSES STATING AND WOULD LIKE TO SPEAK TO A CONTROLS OPERATOR MOLDED GOODS. THIS NURSE WENT INTO HELP PATIENT. PATIENT IS OK WITH HIS BROTHER COMING AND TALKING TO HIM BUT HE DOES NOT WANT HIS BROTHER TO MAKE CHOICES FOR HIM. HE STATED THEY DONT SEE EYE TO EYE AND HIS BROTHER TRIES TO CONTROL HIM. PATIENT ALSO STARTED TALKING ABOUT HIS BANK ACCOUNTS AND WHAT HIS BROTHER HAS BEEN DOING TO THEM. THIS NURSE ADVISED PATIENT THAT WE ARE NOT ABLE TO HELP HIM WITH THE BANK INFORMATION HE WOULD HAVE TO CALL THE BANK. I ADVISED HIM THAT HE COULD TALK TO CASE MANAGEMENT IN THE MORNING TO MAKE SURE THAT HE IS DOING WHAT HE WANTS WITH HIS MEDICAL CONCERNS AND CARE. ADVISED PATIENT THAT IF HE DOES NOT WANT HIS BROTHER UP HERE AND IN HIS ROOM WE COULD HELP HIM WITH THAT. PATIENT IS OK WITH HIM COMING TO SEE HIM. PATIENT GIVEN FRESH WATER, CALL LIGHT WITHIN REACH, BED IN LOW POSITION. PATIENT DENIES ANY OTHER CARES AT THIS TIME. NO IV, RA.
--- NOTE | 2023-09-24 20:56 | NUR ---
VITALS DONE AND I&O'S DONE. PATIENT DENIES NEEDING ANYTHING MORE BEFORE BED.
--- NOTE | 2023-09-24 21:23 | NUR ---
GROUP FITNESS DEPARTMENT HEAD ENTERED ROOM. GROUP FITNESS DEPARTMENT HEAD OBSERVED PT CHECKED OWN BG. RN NOTIFIED. PT STATES NO FURTHER NEEDS AT THIS TIME. CALL LIGHT IS WITHIN REACH.
--- NOTE | 2023-09-24 21:39 | NUR ---
PATIENT WAS ABLE TO GIVE HIMSELF IS OWN INSULIN WITH NO COMPLICATIONS.
--- NOTE | 2023-09-24 22:44 | NUR ---
PATIENT CURRENTLY SLEEP ON HIS LEFT SIDE. REGULAR RESPIRATIONS NOTED.
--- NOTE | 2023-09-24 23:14 | NUR ---
PATIENT REQUESTING SOME PAIN MEDICATION FOR HIS BACK. SEE EMAR, PATIENT GIVEN TYLENOL.
[2023-09-24] MEDS ORDERED: ACETAMINOPHEN 500 MG TAB PO PRN (23:15)
[2023-09-25] VITALS (8 sets, daily range): BP systolic 125–153; BP diastolic 67–89
--- NOTE | 2023-09-25 02:13 | NUR ---
pt RESTING IN THE BED WITH EYES CLOSED. RR EVEN AND UNLABORED. CALL LIGHT WITHIN REACH.
--- NOTE | 2023-09-25 03:45 | NUR ---
pt CALLED AND REQUESTED HOT [facility]RA[facility]. pt RESTING IN THE BED. pt DENIES ANY OTHER NEEDS AT THIS TIME. CALL LIGHT WITHIN REACH.
--- NOTE | 2023-09-25 05:59 | NUR ---
OPERATIONS ADMINISTRATIVE ASSISTANT ENTERED ROOM AND OBTAINED VITALS AND DOCUMENTED I&0. PT STATES NO FURTHER NEEDS AT THIS TIME. CALL LIGHT PLACED WITHIN REACH.
--- NOTE | 2023-09-25 07:09 | NUR ---
REPORT RECEIVED FROM MORTGAGE COORDINATOR DANIELA SWEET. PATIENT IS INDEPENDENT IN THE ROOM AND IS USING THE BATHROOM.
--- NOTE | 2023-09-25 08:48 | NUR ---
0800 AND 0900 MEDICATIONS ADMINISTERED PER THE EMAR. FULL ASSESSMENT COMPLETE AND DOCUMENTED IN THE CHART. PATIENT IS ALERT AND ORIENTED. PATIENT ON ROOM AIR AND LUNG SOUNDS ARE CLEAR IN ALL LUNG CUEN[place] BILATERALLY. CARDIAC WITH NORMAL S1 AND S2 ON AUSCULTATION. SENSATION INTACT. PATIENT WITH COMPLAINTS OF NUMBNESS AND TINGLING IN BILATERAL FINGERS/HANDS AND FEET. PATIENT WITH NO IV SITE. BOWEL TONES ARE ACTIVE IN ALL FOUR QUADRANTS. PATIENT WITH PAIN RATED 3.5/10 IN THE BACK BUT IS NOT REQUESTING PRN PAIN MEDICATION AT THIS TIME. PATIENT ABLE TO DEMONSTRATE SELF ADMINISTRATION OF INSULIN FOR NEWLY DIAGNOSED DIABETES. PATIENT BREAKFAST TRAY REMOVED BY RADHA PORTILLO. NEW BEDSIDE TABLE PLACED IN THE PATIENTS ROOM PER PATIENT REQUEST. PATIENT SKIN WITH SMALL SCATTERED BRUISING. PATIENT STATED NO FURTHER NEEDS AT THIS TIME. CALL LIGHT AND PERSONAL BELONGINGS ARE WITHIN REACH.
--- NOTE | 2023-09-25 09:15 | NUR ---
PATIENT IN BED AT THIS TIME. RITA CLAIMED THAT HIS BEDSIDE TABLE DID NOT MOVE WELL ENOUGH AND THAT THE WHEELS WERE BAD. PATIENT TOLD MACHINE BANDER AND CELLOPHANER HELPER THAT IF HE DID NOT GET A NEW TABLE THAT HE WOULD [facility] THE HOSP[facility]. MACHINE BANDER AND CELLOPHANER HELPER CHANGED BEDSIDE TABLE. CALL LIGHT WITHIN REACH, NO FURTHER NEEDS AT THIS TIME.
--- NOTE | 2023-09-25 14:18 | NUR ---
PATIENT IS SITTING UPRIGHT IN BED AND WATCHING TV AT THIS TIME. WHEN ASKED ABOUT PAIN, PATIENT RATED IT A 3/10 IN THE LOWER BACK. PRN 500 MG OF TYLENOL ADMINISTERED PER THE EMAR. PATIENT IS ALERT AND ORIENTED TIMES FOUR. BOWEL TONES ARE ACTIVE IN ALL FOUR QUADRANTS. PATIENT WITH NO IV SITE. PATIENT STATED NO FURTHER NEEDS AT THIS TIME. CALL LIGHT AND PERSONAL BELONGINGS ARE WITHIN REACH.
--- NOTE | 2023-09-25 16:06 | NUR ---
PATIENT IS LYING ON THEIR LEFT SIDE. RESPIRATIONS ARE EVEN AND UNLABORED. CALL LIGHT AND PERSONAL BELONGINGS ARE WITHIN REACH.
--- NOTE | 2023-09-25 19:24 | NUR ---
REPORT RECEIVED FROM DAY SHIFT RN. PT LYING IN BED RESTING WITH EYES CLOSED. RESPIRATIONS EVEN. CALL LIGHT IN REACH.
--- NOTE | 2023-09-25 20:40 | NUR ---
EVENING ASSESSMENT COMPLETE. SCHEDULED MEDS ADMIN PER EMAR. PT ABLE TO SAFELY ADMINISTER OWN INSULIN. ANALYST FOOD AND BEVERAGE OBTAINED BLOOD SUGAR. PT REPORTS CHRONIC BACK PAIN, DENIES PRN FOR PAIN AT THIS TIME. VS AND I&O OBTAINED, WNL. PT DENIES QUESTIONS OR CONCNERNS AT THIS TIME. CALL LIGHT IN REACH.
--- NOTE | 2023-09-25 23:02 | NUR ---
PT AWAKE IN BED. REPORTS 5/10 CHRONIC LOW BACK PAIN. PRN FOR PAIN ADMIN PER EMAR. FRESH WATER PROVIDED. NO FURTHER NEEDS.
--- NOTE | 2023-09-26 00:39 | NUR ---
CALL LIGHT ANSWERED. PT REPORTS LOW BACK PAIN WHICH IS CHRONIC. WARM COMPRESS PROVIDED. ASSISTED TO REPOSITION. NO FURTHER NEEDS.
--- NOTE | 2023-09-26 02:05 | NUR ---
PT RESTING ON LEFT SIDE WITH EYES CLOSED. RESPIRATIONS EVEN. CALL LIGHT IN REACH.
--- NOTE | 2023-09-26 04:14 | NUR ---
PT RESTING IN BED WITH EYES CLOSED. RESPIRATIONS EVEN. CALL LIGHT IN REACH.
[2023-09-26 04:34] VITALS: BP 133/80
--- NOTE | 2023-09-26 06:18 | NUR ---
CALL LIGHT ANSWERED. ICE WATER PROVIDED PER REQUEST. VS AND I&O OBTAINED. PT DENIES PAIN OR NAUSEA AT THIS TIME. REPORTS HE SLEPT WELL. DENIES NEEDS. CALL LIGHT IN REACH.
--- NOTE | 2023-09-26 08:17 | NUR ---
Board has been updated. Proper step on BG check has been completed. Water was filled for patient and call light has been placed within reach.
[2023-09-26 09:02] VITALS: BP 138/77
--- NOTE | 2023-09-26 12:40 | NUR ---
SS insulin administered. Patient sitting up in chair with socks on his arms, this RN administers at this time. Patient denies needs at this time.
[2023-09-26 13:55] VITALS: BP 139/81
--- NOTE | 2023-09-26 17:25 | NUR ---
SS insulin administered by patient. Sleeves provided to patient. Patient has no needs or complaints at this time.
[2023-09-26 17:33] VITALS: BP 136/78
[2023-09-26 17:35] VITALS: BP 136/78
--- NOTE | 2023-09-26 19:08 | NUR ---
REPORT RECEIVED FROM DAY SHIFT RN. PT LYING ON COUCH RESTING WITH EYES CLOSED. RESPIRATIONS EVEN. WHITE BOARD UPDATED. CALL LIGHT IN REACH.
[2023-09-26 20:24] VITALS: BP 141/86
--- NOTE | 2023-09-26 20:39 | NUR ---
EVENING ASSESSMENT COMPLETE. VS AND I&O OBTAINED. PT ABLE TO CHECK OWN BLOOD SUGAR. REQUESTED THIS RN TO ADMIN INSULIN IN ARM. PT DENIES PAIN OR NAUSEA. NO NEEDS AT THIS TIME. CALL LIGHT IN REACH.
--- NOTE | 2023-09-26 22:15 | NUR ---
CALL LIGHT ANSWERED. WARM BLANKETS PROVIDED PER REQUEST. NO FURTHER NEEDS AT THIS TIME.
--- NOTE | 2023-09-27 00:39 | NUR ---
PT RESTING IN BED WITH EYES CLOSED. RESPIRATIONS EVEN. CALL LIGHT IN REACH.
--- NOTE | 2023-09-27 02:51 | NUR ---
PT RESTING IN BED WITH EYES CLOSED. RESPIRATIONS EVEN. CALL LIGHT IN REACH.
[2023-09-27 05:03] VITALS: BP 114/72
--- NOTE | 2023-09-27 05:52 | NUR ---
PT AWAKE IN BED. VS AND I&O OBTAINED. PT DENIES PAIN OR NAUSEA. NO NEEDS AT THIS TIME. CALL LIGHT IN REACH.
--- NOTE | 2023-09-27 07:15 | NUR ---
Pt report received from DANIELA Espinoza
--- NOTE | 2023-09-27 07:57 | NUR ---
Patient reported sleeping well. Patient and I went through the proper steps of BG check. Board has been updated and call light has been placed within reach.
--- NOTE | 2023-09-27 08:25 | NUR ---
SPOKE TO ALYCE AT [facility] ABOUT PATIENT REFERRAL, [facility] CAN NOT TAKE the PATIENT. SPOKE TO PATIENT'S BROTHER AND THE BROTHER CAN NOT COME AND HELP HIS BROTHER BECAUSE HE HAS TO WORK. THE BROTHER STATES WE CAN CALL THE BROTHER IF NEEDED. PATIENT REFUSES TO GO TO HIS HOME. WHEN THE PATIENT WAS ASKED ABOUT GIVING HIMSELF INSULIN THE PATIENT HAD A BLANK STARE AND STATED"THAT IS WHERE I STICK BIG AND LITTLE NEEDLES IN MYSELF. THE PATIENT STATES I AM GOING TO [place] SOON I AM WELL. THE PATIENT PLANS TO DRIVE HIMSELF. PATIENT ASKED AGAIN IF HE CAN GIVE HIS OWN INSULIN AND PATIENT STATES "NO" . THE DISCARGE IT COMMUNICATIONS MANAGER WILL CALL [facility] FOR PLACEMENT. DIONE SHEILA CALLED AND SHE DOES NOT HAVE A BED.
[2023-09-27 09:09] VITALS: BP 115/63
--- NOTE | 2023-09-27 09:48 | NUR ---
SPOKE TO SAMEER THE BROTHER OF THE PATIENT.SAMEER STATES THAT THE PATIENT HAS A TRUST FUND AND ALIZA MUST CALL THE TRUSTEE TO GET MONEY TO HELP WITH PLACEMENT. THE SHIFT SUPERVISOR RN WILL ENCOURAGE ALIZA TO CALL THE TRUSTEES.
--- NOTE | 2023-09-27 10:02 | NUR ---
PATIENT HAS AGREED TO HAVE RECORDS SET TO [facility] AND [facility]. FOR A REFERRAL FOR PLACEMENT. RECORDS FAXED. REFUSES [facility] AYALA OR [facility].
[2023-09-27 10:25] VITALS: BP 115/63
[2023-09-27 13:18] VITALS: BP 119/71
--- NOTE | 2023-09-27 13:18 | NUR ---
PT DECLINED SPIRITUAL CARE SERVICES. PRAYED FOR PT.
--- NOTE | 2023-09-27 14:36 | NUR ---
THE PATIENT TOLD DR. HINDS THAT HIS BROTHER WAS COMING TO GET HIM AND TAKE HIM HOME WITH THE BROTHER. THE MARSHMALLOW MAKER CALLED THE BROTHER SAMEER AND THAT IS NOT THE CASE. THE BROTHER IS NOT COMING TO [place] OR..
--- NOTE | 2023-09-27 16:15 | NUR ---
SPOKE TO PATICHERYLE'S SISTER, SHE WOULD LIKE HER BROTHER TO COME TO [place] WHERE SHE LIVES. SISTER'S PHONE NUMBER . [employer] WILL UPDATE THE PATIENT ABOUT HIS SISTER'S WISHES.
--- NOTE | 2023-09-27 16:30 | NUR ---
SPOKE TO THE PATIENT AND HE REFUSES TO LIVE WITH HIS SISTER. IGNACIO SLOAN CALLED AND IS LOOKING AT THE REFERRAL.
--- NOTE | 2023-09-27 17:30 | NUR ---
IN WITH PT FOR INSULIN ADMINISTRATION. PT IS EATING HIS DINNER TRAY. PT SELF ADMINISTERED 5U INSULIN IN LASQ. DENIES FURTHER NEEDS AT THIS TIME.
[2023-09-27 17:52] VITALS: BP 139/82
--- NOTE | 2023-09-27 19:39 | NUR ---
REPORT RECEIVED FROM DAY SHIFT RN. PT LYING ON COUCH ALERT AND ORIENTED. DENIES NEEDS. WHITE BOARD UPDATED. CALL LIGHT IN REACH.
[2023-09-27 20:44] VITALS: BP 125/71
--- NOTE | 2023-09-27 21:01 | NUR ---
EVENING ASSESSMENT COMPLETE. SCHEDULED MEDS ADMIN PER EMAR. PT ABLE TO DO OWN ACCU CHECK. ASKED THIS RN TO ADMIN INSULIN IN RIGHT ARM. PT DENIES PAIN OR NAUSEA AT THIS TIME. VS AND I&O OBTAINED. PT DENIES FURTHER NEEDS. CALL LIGHT IN REACH.
--- NOTE | 2023-09-27 23:25 | NUR ---
PT RESTING IN BED LYING ON LEFT SIDE. EYES CLOSED. RESPIRATIONS EVEN. CALL LIGHT IN REACH.
--- NOTE | 2023-09-28 03:15 | NUR ---
PT AWAKE ON SIDE OF BED. UP TO BR INDEPENDENTLY TO VOID. URINE EMPTIED. FRESH WATER PROVIDED. PT DENIES NEEDS. CALL LIGHT IN REACH.
[2023-09-28 06:00] VITALS: BP 120/57
--- NOTE | 2023-09-28 06:24 | NUR ---
PT RESTING ON COUCH. VS AND I&O OBTAINED. PT DENIES PAIN OR NAUSEA. NO NEEDS AT THIS TIME. CALL LIGHT IN REACH.
--- NOTE | 2023-09-28 07:18 | NUR ---
Pt report received from DANIELA Jefferson. Pt is sitting up on the couch. Board updated. Call light in reach. Denies needs at this time.
--- NOTE | 2023-09-28 09:12 | NUR ---
ST screening for cognition completed; SLUMS was performed. Pt scored 21/30, suggesting mild cognitive impairment. Notably, immediate memory was intact for five items but patient exhibited deficits in delayed memory as well as deficits in executive functioning.
[2023-09-28 09:36] VITALS: BP 121/77
--- NOTE | 2023-09-28 09:45 | NUR ---
Lengthy discussion in 8:30 meeting with and staff regarding this pt. Pt cont. to say he is unable to correctly take insulin. He also is refusing to go home to his apartment. has ordered a cognitive eval and ST will complete today. also ordered a telepsych eval. When these are completed will take steps to discharge this pt whereever needed. Per staff, pt stating he will go home with his brother. Brother denied this.
[2023-09-28 10:19] VITALS: BP 121/77
--- NOTE | 2023-09-28 13:00 | NUR ---
Discussion with Dr. Link and myself about plan for this pt to dc. Discussed if pt needs insulin or could take a pill. He will review. then returned and pt could take po meds for his diabetes. We reviewed in the [facility] formilary and pt would need to start with Metformin. This would need to be trialed prior to pt starting Jardiance. will discuss with pt.
--- NOTE | 2023-09-28 13:24 | NUR ---
PT DECLINED SPIRITUAL CARE SERVICES. PROVIDED PRAYER.
[2023-09-28 14:04] VITALS: BP 139/77
--- NOTE | 2023-09-28 14:45 | NUR ---
Spoke with Jorge. Discussed his plan for dc. He states he could take a po med for diabetes. He does not want to return to his home. Discussed he could take a taxi and dc to any hotel he likes. He states he plans on moving to [place]. When asked, it will most likely be 2 or more weeks before he he moves.
--- NOTE | 2023-09-28 16:21 | NUR ---
Received a call from pts sister, requesting information about pt. She would like him to be placed in [place]. Let her know I cannot give any information as she is not listed as an emergency contact. I updated pt his sister called and asked if he has her number. He states he does not want to go to [place] as he hates it there. He wants to move to [place], [place]. He wants to know if he has to call his sister and I let him know it is completely up to him. I cannot give out any info to her. He does not want to make her his emergency contact. We did discuss what pt plans on doing with his belonging in his current home. He plans on moving them to his property in [place]. He does agree to keep the appt I made with Braden eTjeda at [facility] next Wed. We again discussed the importance of having a PCP to follow his diabetes and he states understanding. Will fu with pt tomorrow.
--- NOTE | 2023-09-28 16:28 | NUR ---
Awaiting telepsych note and ST note for cognition assessment.
[2023-09-28] MEDS ORDERED: metFORMIN HCL 500 MG TABCR PO SCH (17:00)
[2023-09-28 17:43] VITALS: BP 134/73
--- NOTE | 2023-09-28 19:18 | NUR ---
REPORT RECEIVED FROM DAY SHIFT RN. PT LYING ON COUCH ALERT AND ORIENTED. DENIES NEEDS. WHITE BOARD UPDATED. CALL LIGHT IN REACH.
[2023-09-28 20:32] VITALS: BP 130/71
--- NOTE | 2023-09-28 21:07 | NUR ---
EVENING ASSESSMENT COMPLETE. VS AND I&O OBTAINED. PT DENIES PAIN OR NAUSEA. PT ABLE TO DO OWN BLOOD SUGAR CHECK AND ADMINISTER INSULIN SAFELY. PT DENIES QUESTIONS OR CONCERNS. CALL LIGHT IN REACH.
--- NOTE | 2023-09-28 23:11 | NUR ---
PT RESTING IN BED WITH EYES CLOSED. RESPIRATIONS EVEN. CALL LIGHT IN REACH.
--- NOTE | 2023-09-29 03:23 | NUR ---
PT LYING IN BED RESTING WITH EYES CLOSED. RESPIRATIONS EVEN. CALL LIGHT IN REACH.
[2023-09-29 05:42] VITALS: BP 128/73
--- NOTE | 2023-09-29 05:44 | NUR ---
PT AWAKE SITTING IN RECLINER. VS AND I&O OBTAINED. PT REPORTS BACK PAIN. DENIES PRN FOR PAIN WHEN OFFERED. NO NEEDS AT THIS TIME. CALL LIGHT IN REACH.
--- NOTE | 2023-09-29 07:41 | NUR ---
RECEIVED REPORT FROM ZEYNEP SUAREZ. PT IS SLEEPING ON COUCH UPON ENTERING ROOM, DID NOT WAKE. PT LEFT TO REST AT THIS TIME.
--- NOTE | 2023-09-29 08:57 | NUR ---
PT SITTING UP ON COUCH AT THIS TIME. A/OX4. SEEMS TO BE VERY PLEASANT THIS MORNING. MORNING MEDS GIVEN, NO ISSUES TAKING THOSE. PT WAS ABLE TO ADMINISTER HIS INSULIN WITHOUT ANY ISSUES THIS MORNING. DENIES PAIN/NAUSEA. ALREADY ATE BREAKFAST, FRESH ICEWATER PROVIDED. ASSESSMENT BENIGN. OFFERED TO OPEN WINDOW TO LET SOME LIGHT IN AND PT DECLINED AT THIS TIME. ALL PT CARE NEEDS MET AT THIS TIME, PT DENIES ANY FURTHER NEEDS.
[2023-09-29 09:18] VITALS: BP 132/75
--- NOTE | 2023-09-29 09:20 | NUR ---
PATIENT SITTING ON COUCH AT THIS TIME. VITALS AND I&O'S CHARTED. CALL LIGHT WITHIN REACH, NO FURTHER NEEDS AT THIS TIME.
--- NOTE | 2023-09-29 09:30 | NUR ---
Spoke with pt and again discussed dc for today. Pt was discussed in AM meeting and plan remains to dc today. We discussed where he would like to go on dc. We discussed his home and hotels in the area. Pt wanting to know how he will eat. We then discussed how he was able to eat prior to the hospital admission. Pt stating he does not want to return to his home. I again let him know I can send him to any hotel he wants to go. He will need to pay out of pocket for the hotel. I gave him the names of hotels near to his pharmacy. We discussed [address] which has a restaurant next to it and [facility]. [place] is with in [address] of [facility] and [facility]. Let pt know he just needs to let me know where he wants to go. Let him know I can schedule [facility] transport or send him by taxi. I will also requests they take him to [facility] to pick up man his new meds. Pt will let me know. We again discussed his diet and he is stuck on where he will get food. Let him know he needs to go to a restaurant or the grocery store. He should focus on fruits, vegetables, meat, and low carbs. Pt states several people have been in to discuss his diet. He then states he will be moving to [place]. He states he has to get out of the cold. We discussed the weather has been warming up. Pt becomes angry and tells me to not argue with him as he will move to [place]. I let him know this is fine, he just needs to dc from the hospital and he can go wherever he wants. Pt discussing diet and stating he doesn't want to check his blood. I then cautioned him to be sure and keep his follow up appt with Braden Tejeda at [facility] to check his blood sugar.Pt stating he will have to return to his apartment at some point to pick up man his car so he can move. Pt states he called his brother last night to ask if he can live with him. I discussed with the pt, during our phone calls with his brother, the brother clearly stated he cannot live with him. Let pt know I will return and he can tell me which hotel he wants to dc to. I gave the pt the [facility] transport phone number and let him know he can call any medical rides. Pt states understanding. the his brother
--- NOTE | 2023-09-29 10:10 | NUR ---
Returned to pts room after speaking with RN and Dr. Palm Rn and Dr. Link in room. Pt having difficulty detemining where he wants to go. Dr. Link reviewed with pt [facility] and [place] [id number]. Listed the places to eat in both areas. Pt stating he is not from here. Arpita then asked the pt how long he has lived in [place] and he states a year. Pt would like [facility] transport and wants to dc to [facility]. Let him know I will call and schedule transport to take him to [facility] and to [facility]. Called [facility] transport and scheduled for supervisor picking crew at 12, they will take him to [facility] to supervisor picking crew meds. Updated RN, aids, and pt for pt to be at front of the hospital by 12. Called pts brother and updated. Gave him the name of the hotel and their address and phone. Brother states he brought pt his wallet and pt has credit cards to pay for a room and food. I let him know pt does not want to check his BS and he I stressed to the pt the importance of keeping his appt with pcp. Pts brother states its hard to tell what pt will do. Pt left a message for him last night stating he is moving to [place]. Brother thanked me and feels there isn't anything else to be done for Zach.
[2023-09-29] MEDS ORDERED: METFORMIN HCL500 M1 PO (10:12)
--- NOTE | 2023-09-29 10:28 | NUR ---
PT DECLINED PASTORAL CARE SERVICES. PROVIDED PRAYER.
[2023-09-29 11:07] VITALS: BP 115/76
--- NOTE | 2023-09-29 11:18 | NUR ---
PT IS GETTING DRESSED FOR DISCHARGE AT THIS TIME. NO IV TO REMOVE.
[2023-09-29 11:22] VITALS: BP 115/76
--- NOTE | 2023-09-29 11:30 | NUR ---
Notified by staff pt wanting to see [facility] To room and pt stating he wants to be discharged to [place] to live with his sister. He has not been able to contact her today. I let him know we will proceed with discharge to [facility]. He can contact her and make arrangements to move to [place] if they agree on this after he is discharged.
== END 2023-09-29 12:00 | disposition home or self-care (01) | DRG 638 ==
LOC: ED 17:18 → CCU 17:21 → MS 09-20 10:25
PROVIDERS: Emergency Medicine; Family Medicine; Internal Medicine; ADMIT Internal Medicine; ATTEND Internal Medicine
DX: E11.10 Type 2 diabetes mellitus with ketoacidosis without coma (principal); E87.1 Hypo-osmolality and hyponatremia; N17.9 Acute kidney failure, unspecified; E87.6 Hypokalemia; I10 Essential (primary) hypertension; F12.90 Cannabis use, unspecified, uncomplicated; E86.0 Dehydration; F91.9 Conduct disorder, unspecified
CPT/HCPCS: 36415; 70450; 71045; 80048; 80053; 80307; 81001; 82010; 82803; 82947; 83036; 83605; 83735; 84100; 84484; 85025; 85060; 87040; 87088; 93005; 93010; 97110; 97116; 97162; 97166; 97530; 97535; A9270; C9113; G0480; J0692; J0878; J1650; J1815; J3411; J3480; J3490; J7030; J7060; J7121